=== PATIENT | female | born 1965 | race Caucasian/White ===

== ENCOUNTER 2017-10-04 05:21 | Day surgery (SDC) | payer BC ==
[~2017-10-04] VITALS: Ht 175.3 cm; Wt 115.2 kg
[~2017-10-04 05:21] MED LIST: ALEVE220 M2 PO; CLARITIN10 M3 PO; DAILY VALUE1 EACH PO; LO-DOSE ASPIRIN81 M1 PO; PRILOSEC20 MG PO; VITAMIN B-1250 MG PO
[2017-10-04 06:15] VITALS: BP 123/59
[2017-10-04 08:58] VITALS: BP 124/52
[2017-10-04 09:50] VITALS: BP 107/55
== END 2017-10-04 09:50 | disposition home or self-care (01) ==
LOC: SDC 05:21
PROVIDERS: Obstetrics & Gynecology Gynecologic Oncology
PROC: 0UDB8ZX Extraction of Endometrium, Via Natural or Artificial Opening Endoscopic, Diagnostic (ICD-10-PCS; principal; 2017-10-04)
DX: N95.0 Postmenopausal bleeding (principal); Z85.3 Personal history of malignant neoplasm of breast; N88.2 Stricture and stenosis of cervix uteri; N81.10 Cystocele, unspecified; F17.210 Nicotine dependence, cigarettes, uncomplicated; J45.909 Unspecified asthma, uncomplicated; E78.4 Other hyperlipidemia; E05.00 Thyrotoxicosis with diffuse goiter without thyrotoxic crisis or storm; K21.9 Gastro-esophageal reflux disease without esophagitis; E66.09 Other obesity due to excess calories; E11.9 Type 2 diabetes mellitus without complications; Z80.3 Family history of malignant neoplasm of breast; Z82.49 Family history of ischemic heart disease and other diseases of the circulatory system; Z79.82 Long term (current) use of aspirin; Z68.39 Body mass index [BMI] 39.0-39.9, adult; Z88.1 Allergy status to other antibiotic agents; Z88.0 Allergy status to penicillin; Z88.2 Allergy status to sulfonamides; Z88.8 Allergy status to other drugs, medicaments and biological substances
CPT/HCPCS: 82948; 88305; J0330; J1100; J1580; J1885; J2250; J2405; J2710; J3010; J7050; S0030